=== PATIENT | female | born 1965 ===

== ENCOUNTER 2022-03-27 13:18 | Emergency (ER) | payer OTHER ==
[2022-03-27] MEDS ORDERED: Ketorolac 60 MG/2 ML SDV IM ONE (13:24)
== END 2022-03-27 14:06 | disposition home or self-care (01) ==
LOC: LB.ED 13:18
DX: S99.911A Unspecified injury of right ankle, initial encounter (principal); W10.8XXA Fall (on) (from) other stairs and steps, initial encounter
CPT/HCPCS: 73610; 96372; 99283; J1885; 99281